=== PATIENT | female | born 1950 | race Caucasian/White ===

== ENCOUNTER 2021-05-03 10:00 | Emergency (ER) | payer MEDICARE ==
[~2021-05-03] VITALS: Ht 170.2 cm; Wt 118.1 kg
--- NOTE | 2021-05-03 10:24 | PHYS DOC ---
Past History Past Medical History: Arthritis Additional Past Medical Histor: osteoarthritis in right knee Past Surgical History: Cholecystectomy Smoking: Non-smoker Alcohol Use: Occasionally Drug Use: None General Adult EDM: Chief Complaint: SYNCOPE HPI: HPI: 71-year-old female arrived via EMS with chief complaint of syncopal episode. At 0920 this morning, patient was walking into [employer] when she suddenly felt dizzy and lightheaded, "leaned against the wall", and "slid" to the floor. Patient denies any mechanical trauma, including hitting her head. Although patient does not remember, bystanders noted she lost consciousness for a few seconds. Patient denies any history of seizures. This is the first episode of loss of consciousness for the patient. According to patient, nothing out of the ordinary occurred this morning leading to her syncopal episode. Patient ate breakfast, did not physically exert herself beyond normal and did not have significant emotional stresses. Patient reports she has been having some shortness of breath which is worse with exertion over the last 3 days. Patient denies chest pain, nausea/vomiting, or headache. Review of Systems: Review of Systems: Constitutional: Denies fever or chills Eyes: Denies redness or eye pain HENT: Denies nasal congestion or sore throat Respiratory: Reports shortness of air; denies cough Cardiovascular: Denies chest pain or palpitations GI: Denies abdominal pain, nausea, or vomiting : Denies dysuria or hematuria Musculoskeletal: Denies back pain or joint pain Integument: Denies rash or skin lesions Neurologic: Denies headache, focal weakness or sensory changes; reports syncopal episode Complete systems were reviewed and found to be within normal limits, except as documented in this note. Allergies: Allergies: Amoxicillin Physical Exam: PE: Constitutional: Well developed, well nourished, no acute distress, non-toxic appearance HENT: Normocephalic, atraumatic Eyes: PERRL, EOMI, conjunctiva normal, no discharge, no nystagmus Neck: Normal range of motion, no tenderness, supple Lungs & Thorax: No respiratory distress, reports shortness of air. Abdomen: Soft, no tenderness Skin: Warm, dry, no erythema, no rash Back: No tenderness, no CVA tenderness Extremities: No calf tenderness, ROM intact, no edema Neurologic: Alert and oriented X 3, normal motor function, normal sensory function, no focal deficits noted Psychologic: Affect normal, judgment normal Current Patient Data: Vital Signs: Vital Signs Date Time Temp Pulse Resp B/P (MAP) Pulse Ox O2 Delivery O2 Flow Rate FiO2 05/03/21 10:05 114 20 110/69 (83) 91 Room Air EKG: EKG: EKG @ 1013. Sinus tachycardia at rate 118bpm. RR 509ms. SC 128ms. QRS 94ms. QT/QTc 316/445ms. Radiology/Procedures: Radiology/Procedures: PROCEDURE: CT HEAD WO CONTRAST CT HEAD/BRAIN WO Date: 05/03/2021 10:37 AM Clinical Indication: syncope / Spl. Instructions: / History: Comparison: None. Technique: 5 mm axial tomographic images were obtained of the head without contrast. These were viewed on brain and bone windows. One or more of the following dose reduction techniques were utilized: Automated exposure control (AEC), Adjustment of mA and/or kV according to patient size, Use of iterative reconstruction technique such as ASiR, CT scan done according to ALARA and image gently/image wisely Findings: The brain parenchyma is normal in attenuation. No intra- or extra-axial mass or fluid collection. No acute hemorrhage. The ventricles are normal in size, shape, and morphology. The haley-white matter junction is normal. The subarachnoid cisterns are patent. The visualized paranasal sinuses are normal. The visualized portions of the orbits and globes are normal. The mastoid air cells are clear. 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 Impression: No acute intracranial process. Electronically signed by: Stanley Daigle MD (05/03/2021 11:12 AM) [id number] PROCEDURE: CT ANGIOGRAPHY CHEST CTA CHEST INDICATION: SOA eval for PE Comparison: None. TECHNIQUE: Following the uneventful administration of intravenous contrast, 100 cc Omnipaque 350, axial CT sections were obtained through the lungs and upper abdomen. Multiplanar reconstructions and MIP images were obtained. PQRS compliance statement: One or more of the following individualized dose reduction techniques were utilized for this examination: 1. Automated exposure control 2. Adjustment of the mA and/or kV according to patient size 3. Use of iterative reconstruction technique FINDINGS: Pulmonary arteries: Moderate to large burden pulmonary thromboembolic disease involving lobar and segmental branches of all 5 lobes. Flattening of the interventricular septum with dilatation of the right ventricle relative to the left, consistent with right heart strain. Lungs and Airways: Trace right upper lobe subpleural ground glass opacities. No abnormality of the central airways. Pleura: The pleural spaces are normal. Heart and Mediastinum: Thyroid isthmus 1.4 cm nodule, not requiring further evaluation based on size criteria. No axillary or supraclavicular lymphadenopathy. No mediastinal, hilar or retrocrural lymphadenopathy. Normal cardiac size. No pericardial effusion. The great vessels of the thorax are normal. Tiny hiatal hernia Abdomen: Cholecystectomy. Bones and Soft Tissues: Old rib fractures. Degenerative changes of the spine. IMPRESSION: 1. Moderate to large burden bilateral pulmonary thromboembolic disease. Right heart strain is present. Severe bilateral glenohumeral osteoarthritis. 2. Mild right upper lobe subpleural groundglass opacities. In the setting of PE, this could represent pulmonary infarct. Other considerations would include contusion (given history of syncope), asymmetric subpleural fibrosis, or an infectious/inflammatory process. FOR INTERNAL CODING PURPOSES Critical result: Findings discussed with Dr. Amaya at 05/03/2021 11:16 AM. RESULT CODE: (C) Electronically signed by: Stanley Daigle MD (05/03/2021 11:21 AM) [id number] Heart Score: C/O Chest Pain: N/A Course & Med Decision Making: Course & Med Decision Making 71-year-old female arrived via EMS with chief complaint of syncopal episode which occurred just prior to arrival. Patient does report some dyspnea with exertion. Patient tachycardic upon arrival with decreased O2 sats. EKG stable. Labs obtained and posted to chart. Troponin elevated. CTA chest with signs of bilateral PE with heart strain. Aspirin and heparin bolus and gtt initiated. Patient requiring admission for further evaluation and treatment. Discussed with Dr. Suarez (hospitalist) who recommends transfer to higher level of care facility. Discussed case with Dr. Adkins (hospitalist) at [facility], who is in agreement with admission. Discussed findings and plan with patient, who acknowledges understanding and agreement. Dragon Disclaimer: Olvin Disclaimer: This electronic medical record was generated, in whole or in part, using a voice recognition dictation system. Departure Departure: Impression: Primary Impression: Pulmonary embolism Qualified Codes: I26.09 - Other pulmonary embolism with acute cor pulmonale Additional Impressions: Elevated troponin Syncope Qualified Codes: R55 - Syncope and collapse Disposition: 02 [facility] ([facility]- Dr. Adkins (hospitalist)) Condition: STABLE Critical Care Time Critical care time was 30 minutes which includes time at bedside, spent in discussion of patient's care with specialists and/or family members, with interpretation of laboratory and/or radiological studies and is exclusive of procedures. PAULO AMAYA DO May 03, 2021 10:24
--- NOTE | 2021-05-03 10:44 | EKG ---
[address] [address] Test Date: 2021-05-03 Test Time: 10:13:47 Pat Name: LEYDI PÉREZ Department: Room: Gender: F Heeler: KEITH : 1950 Requested By: PAULO AMAYA Order Number: [id number] Reading MD: Kei Dyer Measurements Intervals [place] Rate: 118 P: 39 [place]: 128 QRS: -47 QRSD: 94 T: 62 QT: 316 QTc: 445 Interpretive Statements SINUS TACHYCARDIA ABNORMAL LEFT AXIS DEVIATION LEFT ANTERIOR FASCICULAR BLOCK Electronically Signed On 05-04-2021 12:37:26 GRIEF COUNSELLOR by Kei Dyer
[2021-05-03] MEDS ORDERED: IV NORMAL SALINE 1,000ML 1,000 ML IV ONE (10:45)
[2021-05-03] MEDS ORDERED: IOHEXOL 350 MG/ML 100 ML VIAL. IV ONE (11:00)
[2021-05-03 11:06] LABS: ANION GAP 14 (6-14); BLOOD UREA NITROGEN 19 mg/dL (7-20); BUN/CREATININE RATIO 17 (6-20); CALCIUM 9.5 mg/dL (8.5-10.1); CARBON DIOXIDE 23 mmol/L (21-32); CHLORIDE 104 mmol/L (98-107); CREATININE 1.1 mg/dL (0.6-1.0); GFR 49.2; GLUCOSE 186 mg/dL (70-99); POTASSIUM 3.6 mmol/L (3.5-5.1); SODIUM 141 mmol/L (136-145)
--- NOTE | 2021-05-03 11:14 | RAD ---
CT HEAD/BRAIN WO Date: 05/03/2021 10:37 AM Clinical Indication: syncope / Spl. Instructions: / History: Comparison: None. Technique: 5 mm axial tomographic images were obtained of the head without contrast. These were view ed on brain and bone windows. One or more of the following dose reduction techniques were utilized: A utomated exposure control (AEC), Adjustment of mA and/or kV according to patient size, Use of iterati ve reconstruction technique such as ASiR, CT scan done according to ALARA and image gently/image zimmerman ly Findings: The brain parenchyma is normal in attenuation. No intra- or extra-axial mass or fluid collection. No acute hemorrhage. The ventricles are normal in size, shape, and morphology. The haley-white matter cody ction is normal. The subarachnoid cisterns are patent. The visualized paranasal sinuses are normal. The visualized portions of the orbits and globes are no rmal. The mastoid air cells are clear. 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 Impression: No acute intracranial process. Electronically signed by: Stanley Daigle MD (05/03/2021 11:12 AM) [id number]
[2021-05-03 11:22] LABS: ALBUMIN 3.6 g/dL (3.4-5.0); ALBUMIN/GLOBULIN RATIO 0.9 (1.0-1.7); ALK PHOS 70 U/L (46-116); ALT (SGPT) 43 U/L (14-59); AST (SGOT) 37 U/L (15-37); MAGNESIUM 2.3 mg/dL (1.8-2.4); TOTAL BILIRUBIN 0.4 mg/dL (0.2-1.0); TOTAL PROTEIN 7.4 g/dL (6.4-8.2)
--- NOTE | 2021-05-03 11:23 | RAD ---
CTA CHEST INDICATION: SOA eval for PE Comparison: None. TECHNIQUE: Following the uneventful administration of intravenous contrast, 100 cc Omnipaque 350, axi al CT sections were obtained through the lungs and upper abdomen. Multiplanar reconstructions and MIP images were obtained. PQRS compliance statement: One or more of the following individualized dose reduction techniques were utilized for this examinat ion: 1. Automated exposure control 2. Adjustment of the mA and/or kV according to patient size 3. Use of iterative reconstruction technique FINDINGS: Pulmonary arteries: Moderate to large burden pulmonary thromboembolic disease involving lobar and seg mental branches of all 5 lobes. Flattening of the interventricular septum with dilatation of the righ t ventricle relative to the left, consistent with right heart strain. Lungs and Airways: Trace right upper lobe subpleural ground glass opacities. No abnormality of the ce ntral airways. Pleura: The pleural spaces are normal. Heart and Mediastinum: Thyroid isthmus 1.4 cm nodule, not requiring further evaluation based on size criteria. No axillary or supraclavicular lymphadenopathy. No mediastinal, hilar or retrocrural lympha denopathy. Normal cardiac size. No pericardial effusion. The great vessels of the thorax are normal. Tiny hiatal hernia Abdomen: Cholecystectomy. Bones and Soft Tissues: Old rib fractures. Degenerative changes of the spine. IMPRESSION: 1. Moderate to large burden bilateral pulmonary thromboembolic disease. Right heart strain is present . Severe bilateral glenohumeral osteoarthritis. 2. Mild right upper lobe subpleural groundglass opacities. In the setting of PE, this could represent pulmonary infarct. Other considerations would include contusion (given history of syncope), asymmetr ic subpleural fibrosis, or an infectious/inflammatory process. FOR INTERNAL CODING PURPOSES Critical result: Findings discussed with Dr. Blake at 05/03/2021 11:16 AM. RESULT CODE: (C) Electronically signed by: Stanley Daigle MD (05/03/2021 11:21 AM) [id number]
[2021-05-03] MEDS ORDERED: ASPIRIN 325 MG TABLET PO ONE (11:30)
[2021-05-03] MEDS ORDERED: HEPARIN for IV BOLUS 10,000 UNIT/10 ML VIAL. IV ONE (11:30)
[2021-05-03] MEDS ORDERED: HEPARIN for IV BOLUS 10,000 UNIT/10 ML VIAL. IV PRN ×3 (11:30)
[2021-05-03] MEDS ORDERED: ENOXAPARIN ** NOTE DOSE ** SYRINGE SQ ONE (11:30)
[2021-05-03 11:42] LABS: BASO # 0.1 x10^3/uL (0.0-0.2); BASO % 1 % (0-3); EOS # 0.1 x10^3/uL (0.0-0.7); EOS % 2 % (0-3); HEMATOCRIT 41.8 % (36.0-47.0); HEMOGLOBIN 14.2 g/dL (12.0-15.5); LYMPH # 1.1 x10^3/uL (1.0-4.8); LYMPH % 19 % (24-48); MEAN CORPUSCULAR HEMOGLOBIN 29 pg (25-35); MEAN CORPUSCULAR HGB CONC 34 g/dL (31-37); MEAN CORPUSCULAR VOLUME 86 fL (79-100); MONO # 0.3 x10^3/uL (0.0-1.1); MONO % 5 % (0-9); NEUT # 4.4 x10^3uL (1.8-7.7); NEUT % 73 % (31-73); PLATELET COUNT 283 x10^3/uL (140-400); RED BLOOD COUNT 4.84 x10^6/uL (3.50-5.40); RED CELL DISTRIBUTION WIDTH 14.2 % (11.5-14.5)
[2021-05-03] MEDS: HEPARIN 25,000UTS/250ML PREMIX 250 ML IV PRN (11:53)
[2021-05-03 12:13] LABS: BACTERIA,URINE 0 /HPF (0-FEW); BILIRUBIN,URINE NEG (NEG); CLARITY,URINE HAZY; COLOR,URINE YELLOW; GLUCOSE,URINE NEG (NEG); NITRITE,URINE NEG (NEG); SQUAMOUS EPITHELIAL CELL,UR MOD /LPF; UROBILINOGEN,URINE 0.2 mg/dL (0.2 mg/dL)
[2021-05-03 12:14] LABS: HYALINE CASTS, URINE OCC /HPF
[2021-05-04] MEDS: HEPARIN 25,000UTS/250ML PREMIX 250 ML IV PRN (14:38)
[2021-05-04 15:30] VITALS: BP 136/72
== END 2021-05-04 15:50 | disposition short-term general hospital (02) ==
LOC: ER 10:00
DX: I26.09 Other pulmonary embolism with acute cor pulmonale (principal); R77.8 Other specified abnormalities of plasma proteins; R55 Syncope and collapse; M17.11 Unilateral primary osteoarthritis, right knee; Z20.822 Contact with and (suspected) exposure to COVID-19; Z88.1 Allergy status to other antibiotic agents
CPT/HCPCS: 36415; 70450; 71275; 80053; 81001; 82553; 83605; 83735; 84484; 85025; 85610; 85730; 87426; 93005; 96365; 96366; 96376; 99285; J1644; J7030; Q9967; U0003

== ENCOUNTER → 2021-06-23 | Outpatient (CLI) | payer MEDICARE | LOC: LAB 11:57 | PROVIDERS: ATTEND Internal Medicine Critical Care Medicine | DX: I26.99 Other pulmonary embolism without acute cor pulmonale (principal) | CPT/HCPCS: 36415; 81241 ==

== ENCOUNTER → 2021-09-11 | Outpatient (CLI) | payer MEDICARE ==
--- NOTE | 2021-09-11 13:15 | RAD ---
EXAM: CT CHEST WITHOUT CONTRAST HISTORY: Follow-up lung nodule COMPARISON: CT chest 05/03/2021 TECHNIQUE: Helical CT of the chest performed without contrast. Coronal and sagittal reformats were o btained. One or more of the following individualized dose reduction techniques were utilized for this examinat ion: 1. Automated exposure control 2. Adjustment of the mA and/or kV according to patient size 3. Use of iterative reconstruction technique. FINDINGS: Thyroid gland and thoracic inlet: There is a 1.3 cm left thyroid nodule, unchanged. There are multipl e small thoracic inlet lymph nodes on the left measuring up to 5 mm short axis, also unchanged. Heart and great vessels: The heart is normal in size. No pericardial effusion. No coronary artery ivelisse cifications. The thoracic aorta is normal in caliber. Mediastinum and antwan: There is no mediastinal or hilar lymphadenopathy. There is a small hiatal herni a. Lungs and pleura: The nodule in the posterior right costophrenic sulcus has decreased in size, now 1. 6 x 0.6 cm, and is more linear in appearance, likely atelectasis (image 92). There is an unchanged 3 mm nodule in the lingula (image 61). There are 2 unchanged subpleural nodules in the left lower lobe measuring 2-3 mm (image 68 and 77). Groundglass opacities in the posterior right apex have decreased. No pleural effusion. Chest wall and axillae: No axillary lymphadenopathy. Breast tissue symmetric. Upper abdomen: The gallbladder is surgically absent. Bones: No acute osseous abnormality. There is right glenohumeral degenerative joint disease with mult iple calcified intra-articular body in the subscapularis joint recess. IMPRESSION: 1. Decreased size of the nodule in the posterior right costophrenic sulcus, now more linear in appea carmen and likely atelectasis or resolving infectious/inflammatory process. 2. There are a few additional sub-4 mm nodules in the left lung, stable from 05/03/2021. If the patien t is at high risk for lung cancer, an optional follow-up CT chest could be obtained in April 2022 to ensure stability, per Fleischner Society guidelines. 3. Unchanged 1.3 cm left thyroid nodule and small left thoracic inlet lymph nodes, nonspecific. Electronically signed by: Rosy Robles MD (09/11/2021 1:12 PM) [id number]
== END ==
LOC: CT 11:30
PROVIDERS: ATTEND Internal Medicine Critical Care Medicine
DX: R91.8 Other nonspecific abnormal finding of lung field (principal); E04.1 Nontoxic single thyroid nodule; K44.9 Diaphragmatic hernia without obstruction or gangrene; M19.011 Primary osteoarthritis, right shoulder
CPT/HCPCS: 71250